=== PATIENT | female | born 1965 | race Native Hawaiian/Other Pacific Islander ===

== ENCOUNTER 2019-04-15 07:57 | Outpatient (CLI) | payer BC ==
[2019-04-15 08:37] LABS: PLATELET COUNT 265 K/uL (152-353)
[2019-04-15 08:38] LABS: POTASSIUM 4.4 mmol/L (3.6-5.2)
== END 2019-04-15 20:45 | disposition home or self-care (01) ==
LOC: LABW 07:57
PROVIDERS: Nurse Practitioner Family
DX: N95.1 Menopausal and female climacteric states (principal); G47.09 Other insomnia; Z79.899 Other long term (current) drug therapy
CPT/HCPCS: 36415; 80053; 80061; 81000; 82627; 82670; 83001; 83002; 84144; 84146; 84270; 84403; 85027

== ENCOUNTER 2020-07-11 09:05 | Outpatient (CLI) | payer BC | END 2020-07-11 19:38 | disposition home or self-care (01) | LOC: MRI 09:05 | DX: G35 Multiple sclerosis (principal); R68.89 Other general symptoms and signs; R20.1 Hypoesthesia of skin; M54.9 Dorsalgia, unspecified | CPT/HCPCS: 82565; 84520; A9576 ==

== ENCOUNTER 2021-05-21 15:41 | Outpatient (CLI) | payer BC | END 2021-05-21 23:59 | disposition home or self-care (01) | LOC: RAD 15:41 | PROVIDERS: ATTEND Obstetrics & Gynecology | DX: Z13.820 Encounter for screening for osteoporosis (principal); Z12.31 Encounter for screening mammogram for malignant neoplasm of breast; M85.88 Other specified disorders of bone density and structure, other site ==

== ENCOUNTER 2022-05-24 08:28 | Outpatient (CLI) | payer OTHER | END 2022-05-24 21:15 | disposition home or self-care (01) | LOC: MAMMO 08:28 | PROVIDERS: ATTEND Obstetrics & Gynecology | DX: Z12.31 Encounter for screening mammogram for malignant neoplasm of breast (principal) ==